=== PATIENT | male | born 1965 | race African-American/Black ===

== ENCOUNTER 2020-07-07 14:09 | Inpatient (IN) | payer OTHER ==
[~2020-07-07] VITALS: Ht 190.5 cm; Wt 86.2 kg
[2020-07-07] MEDS: D5W/SOD CHL 0.45% 1,000 ML IV SCH (19:00)
[2020-07-07] MEDS ORDERED: cloNIDine HCL 0.1 MG TAB PO SCH (19:00)
[2020-07-07] MEDS ORDERED: MORPHINE SULF INJ 2 MG/ML SYRINGE 1ML IV PRN (19:00)
[2020-07-07] MEDS ORDERED: NITROGLYCERIN 0.4 MG SL TAB SL PRN (19:00)
[2020-07-07 19:25] VITALS: BP 163/102
[2020-07-07] MEDS ORDERED: cloNIDine HCL 0.1 MG TAB PO PRN (19:30)
[2020-07-07] MEDS ORDERED: cloNIDine HCL 0.1 MG TAB PO ONE (19:45)
[2020-07-07 20:00] VITALS: BP 167/111
[2020-07-07 21:27] LABS: Basophils # (auto) 0 10 ^3/uL (0-0.2); Basophils % (auto) 0.6 % (0.0-2.0); Eosinophils # (auto) 0.3 10 ^3/uL (0-0.8); Eosinophils % (auto) 6.1 % (0.0-7.0); Hematocrit 46.7 % (41.0-53.0); Hemoglobin 16.3 g/dL (13.5-17.5); Lymphocytes % (auto) 17.9 % (10.0-50.0); Mean Corpuscular Hemoglobin 30.5 pg (28.0-32.0); Mean Corpuscular Hgb Conc. 34.9 g/dL (32.0-36.0); Mean Corpuscular Volume 87.4 fL (80.0-100.0); Monocytes # (auto) 0.6 10 ^3/uL (0-1.3); Monocytes % (auto) 11.6 % (0.0-12.0); Neutrophils # (auto) 3.6 10 ^3/uL (1.6-8.6); Neutrophils % (auto) 63.8 % (37.0-80.0); Nucleated Red Blood Cells % 0.2 %; Platelet Count (auto) 195 10^3/uL (140-450); Red Blood Cells 5.35 10^6/uL (4.5-5.90); Red Cell Distribution Width 13.6 % (11.8-14.3); White Blood Cell 5.6 10^3/uL (4.4-10.8)
[2020-07-07 21:46] LABS: Calcium 8.8 mg/dL (8.5-10.1)
[2020-07-07 21:51] LABS: BUN/Creatinine Ratio 11.1
[2020-07-08] MEDS: D5W/SOD CHL 0.45% 1,000 ML IV SCH ×3 (01:46→13:20)
[2020-07-08 02:35] VITALS: BP 167/111
[2020-07-08 05:26] VITALS: BP 113/64
[2020-07-08] MEDS: ASPirin 81 mg TAB PO SCH (08:56)
[2020-07-08] MEDS: amLODIPine BESYLATE 5 MG TAB PO SCH (08:57)
[2020-07-08] MEDS: METOPROLOL TARTRATE 25 MG TAB PO SCH (08:57)
[2020-07-08 09:00] VITALS: BP 147/93
[2020-07-08 09:11] LABS: Urine WBC None Seen /hpf (0 - 3)
[2020-07-08 09:19] LABS: Urine Bacteria NONE SEEN /hpf (None Seen); Urine Blood Negative /uL (Negative); Urine Specific Gravity 1.007 (1.001-1.035)
[2020-07-08] MEDS ORDERED: LOSARTAN POTASSIUM 50 MG TAB PO SCH (10:00)
[2020-07-08 13:00] VITALS: BP_DIAS 121
[2020-07-08] MEDS: HYDROcodone-ACET 10/325MG TAB PO PRN ×2 (13:21→20:48)
[2020-07-08 17:00] VITALS: BP 125/89
[2020-07-08] MEDS: ACETAMINOPHEN 325 MG TAB PO PRN (18:12)
[2020-07-08 22:00] VITALS: BP 161/88
[2020-07-09 05:00] VITALS: BP 143/98
[2020-07-09] MEDS: D5W/SOD CHL 0.45% 1,000 ML IV SCH ×4 (05:23→17:40)
[2020-07-09 08:00] VITALS: BP 123/84
[2020-07-09 09:00] VITALS: BP 138/92
[2020-07-09] MEDS: METOPROLOL TARTRATE 25 MG TAB PO SCH (10:05)
[2020-07-09] MEDS: ASPirin 81 mg TAB PO SCH (10:06)
[2020-07-09] MEDS: LOSARTAN POTASSIUM 50 MG TAB PO SCH (10:06)
[2020-07-09] MEDS: amLODIPine BESYLATE 5 MG TAB PO SCH (10:06)
[2020-07-09 12:57] VITALS: BP 147/95
[2020-07-09 16:44] VITALS: BP 145/98
[2020-07-09] MEDS: HYDROcodone-ACET 10/325MG TAB PO PRN (19:42)
[2020-07-09 22:00] VITALS: BP 112/94
[2020-07-10] MEDS: D5W/SOD CHL 0.45% 1,000 ML IV SCH ×4 (01:41→20:41)
[2020-07-10 05:00] VITALS: BP 142/85
[2020-07-10 08:05] VITALS: BP 141/89
[2020-07-10 09:00] VITALS: BP 141/89
[2020-07-10] MEDS: amLODIPine BESYLATE 5 MG TAB PO SCH (09:23)
[2020-07-10] MEDS: ASPirin 81 mg TAB PO SCH (09:24)
[2020-07-10] MEDS: LOSARTAN POTASSIUM 50 MG TAB PO SCH (09:24)
[2020-07-10] MEDS: METOPROLOL TARTRATE 25 MG TAB PO SCH (09:24)
[2020-07-10] MEDS: HYDROcodone-ACET 10/325MG TAB PO PRN ×2 (09:25→18:28)
[2020-07-10 13:00] VITALS: BP 120/77
[2020-07-10 16:49] VITALS: BP 143/87
[2020-07-10 20:00] VITALS: BP 13/87
[2020-07-10] MEDS: ACETAMINOPHEN 325 MG TAB PO PRN (20:55)
[2020-07-11] VITALS (7 sets, daily range): BP systolic 121–161; BP diastolic 88–99
[2020-07-11] MEDS: D5W/SOD CHL 0.45% 1,000 ML IV SCH ×4 (02:45→23:29)
[2020-07-11] MEDS: METOPROLOL TARTRATE 25 MG TAB PO SCH ×2 (09:00→19:17)
[2020-07-11] MEDS: LOSARTAN POTASSIUM 50 MG TAB PO SCH (09:00)
[2020-07-11] MEDS: ASPirin 81 mg TAB PO SCH (09:01)
[2020-07-11] MEDS: CLOPIDOGREL BISULFATE 75 MG TAB PO SCH (09:01)
[2020-07-11] MEDS: amLODIPine BESYLATE 5 MG TAB PO SCH (09:02)
[2020-07-11] MEDS: ACETAMINOPHEN 325 MG TAB PO PRN (09:15)
[2020-07-12] MEDS: ACETAMINOPHEN 325 MG TAB PO PRN ×2 (02:10→20:45)
[2020-07-12 05:00] VITALS: BP 144/89
[2020-07-12] MEDS: D5W/SOD CHL 0.45% 1,000 ML IV SCH ×2 (05:40→12:24)
[2020-07-12] MEDS: HYDROcodone-ACET 10/325MG TAB PO PRN ×2 (07:17→20:37)
[2020-07-12 09:00] VITALS: BP 143/92
[2020-07-12] MEDS: METOPROLOL TARTRATE 25 MG TAB PO SCH (09:33)
[2020-07-12] MEDS: ASPirin 81 mg TAB PO SCH (09:33)
[2020-07-12] MEDS: LOSARTAN POTASSIUM 50 MG TAB PO SCH (09:33)
[2020-07-12] MEDS: CLOPIDOGREL BISULFATE 75 MG TAB PO SCH (09:33)
[2020-07-12] MEDS: amLODIPine BESYLATE 5 MG TAB PO SCH (09:34)
[2020-07-12 13:00] VITALS: BP 125/69
[2020-07-12] MEDS ORDERED: MEPERIDINE HCL (25 MG/ML) 1ML VIAL IM ONE (13:30)
[2020-07-12 17:00] VITALS: BP 128/84
[2020-07-12 20:00] VITALS: BP 134/83
[2020-07-12 22:00] VITALS: BP 134/83
[2020-07-13 04:54] VITALS: BP 122/73
[2020-07-13 08:00] VITALS: BP 142/92
[2020-07-13 09:00] VITALS: BP 142/92
[2020-07-13] MEDS: ASPirin 81 mg TAB PO SCH (09:43)
[2020-07-13] MEDS: LOSARTAN POTASSIUM 50 MG TAB PO SCH (09:44)
[2020-07-13] MEDS: amLODIPine BESYLATE 5 MG TAB PO SCH (09:45)
[2020-07-13] MEDS: METOPROLOL TARTRATE 25 MG TAB PO SCH (09:45)
[2020-07-13] MEDS: CLOPIDOGREL BISULFATE 75 MG TAB PO SCH (09:45)
[2020-07-13] MEDS: ACETAMINOPHEN 325 MG TAB PO PRN ×2 (09:46→16:36)
[2020-07-13 13:12] VITALS: BP 123/78
[2020-07-13 16:35] VITALS: BP 135/80
[2020-07-13] MEDS: LACTULOSE 20Gm/30ML SOLN PO SCH ×2 (18:20→21:49)
[2020-07-13] MEDS: DOCUSATE SOD 100 MG CAP PO SCH (21:49)
[2020-07-13 23:59] VITALS: BP 106/62
[2020-07-14] VITALS (7 sets, daily range): BP systolic 83–124; BP diastolic 63–79
[2020-07-14] MEDS: LACTULOSE 20Gm/30ML SOLN PO SCH ×6 (02:00→21:50)
[2020-07-14] MEDS: ASPirin 81 mg TAB PO SCH (10:28)
[2020-07-14] MEDS: LOSARTAN POTASSIUM 50 MG TAB PO SCH (10:30)
[2020-07-14] MEDS: METOPROLOL TARTRATE 25 MG TAB PO SCH (10:31)
[2020-07-14] MEDS: DOCUSATE SOD 100 MG CAP PO SCH ×2 (10:31→21:49)
[2020-07-14] MEDS: amLODIPine BESYLATE 5 MG TAB PO SCH (10:33)
[2020-07-14] MEDS: CLOPIDOGREL BISULFATE 75 MG TAB PO SCH (10:38)
[2020-07-14] MEDS: ACETAMINOPHEN 325 MG TAB PO PRN (10:39)
[2020-07-14] MEDS ORDERED: SODIUM CHLORIDE 0.9% 1,000 ML IV ONE (13:45)
[2020-07-15] MEDS: LACTULOSE 20Gm/30ML SOLN PO SCH ×6 (02:00→21:13)
[2020-07-15 05:22] VITALS: BP 107/59
[2020-07-15 08:00] VITALS: BP 107/63
[2020-07-15] MEDS: amLODIPine BESYLATE 5 MG TAB PO SCH (09:40)
[2020-07-15] MEDS: ASPirin 81 mg TAB PO SCH (09:40)
[2020-07-15] MEDS: METOPROLOL TARTRATE 25 MG TAB PO SCH (09:40)
[2020-07-15] MEDS: CLOPIDOGREL BISULFATE 75 MG TAB PO SCH (09:40)
[2020-07-15] MEDS: ACETAMINOPHEN 325 MG TAB PO PRN ×2 (09:41→20:51)
[2020-07-15] MEDS: DOCUSATE SOD 100 MG CAP PO SCH ×2 (09:41→21:13)
[2020-07-15] MEDS: LOSARTAN POTASSIUM 50 MG TAB PO SCH (09:42)
[2020-07-15 13:00] VITALS: BP 107/70
[2020-07-15 17:00] VITALS: BP 125/78
[2020-07-15] MEDS: HYDROcodone-ACET 10/325MG TAB PO PRN (20:44)
[2020-07-15 22:00] VITALS: BP 115/69
[2020-07-16] MEDS: LACTULOSE 20Gm/30ML SOLN PO SCH ×6 (01:33→22:00)
[2020-07-16 04:46] LABS: Urine Amorphous Crystal FEW /hpf (None Seen); Urine Bacteria MANY /hpf (None Seen); Urine Blood Negative /uL (Negative); Urine Mucus MODERATE (None Seen); Urine Specific Gravity 1.026 (1.001-1.035); Urine WBC 39 /hpf (0 - 3)
[2020-07-16 05:00] VITALS: BP_SYST 131; BP_SYST 137; BP_DIAS 71; BP_DIAS 82
[2020-07-16 05:51] LABS: Basophils # (auto) 0 10 ^3/uL (0-0.2); Eosinophils # (auto) 0.2 10 ^3/uL (0-0.8); Hemoglobin 14.2 g/dL (13.5-17.5); Lymphocytes # (auto) 0.9 10 ^3/uL (0.4-5.4); Neutrophils # (auto) 2.7 10 ^3/uL (1.6-8.6); White Blood Cell 4.3 10^3/uL (4.4-10.8)
[2020-07-16 05:54] LABS: Basophils % (auto) 0.6 % (0.0-2.0); Eosinophils % (auto) 3.9 % (0.0-7.0); Hematocrit 37.5 % (41.0-53.0); Mean Corpuscular Hemoglobin 34.9 pg (28.0-32.0); Mean Corpuscular Hgb Conc. 37.8 g/dL (32.0-36.0); Mean Corpuscular Volume 92.4 fL (80.0-100.0); Monocytes # (auto) 0.5 10 ^3/uL (0-1.3); Monocytes % (auto) 12.6 % (0.0-12.0); Neutrophils % (auto) 61.9 % (37.0-80.0); Platelet Count (auto) 251 10^3/uL (140-450); Red Blood Cells 4.06 10^6/uL (4.5-5.90); Red Cell Distribution Width 13.3 % (11.8-14.3)
[2020-07-16 06:13] LABS: Potassium 3.7 mmol/L (3.5-5.1)
[2020-07-16 06:18] LABS: BUN/Creatinine Ratio 15.9; Calcium 8.4 mg/dL (8.5-10.1)
[2020-07-16 06:26] LABS: INR 1.19 (0.9-1.15); Partial Thromboplastin Time 28.6 sec (23.0-31.2)
[2020-07-16] MEDS ORDERED: IODIXANOL 320MG/ML 100ML BTL IV ONE (07:38)
[2020-07-16] MEDS ORDERED: LIDOCAINE 2%HCL (LOCAL ANESTH.) INJ 20ML MDV ONE (07:38)
[2020-07-16] MEDS ORDERED: ANGIOMAX 250 MG VIAL IV ONE (08:43)
[2020-07-16] MEDS ORDERED: fentaNYL CITRATE 100 MCG/2 ML VL ONE (08:43)
[2020-07-16] MEDS ORDERED: diphenhdrAMINE HCL 50 MG/1 ML VL ONE (08:43)
[2020-07-16] MEDS ORDERED: MIDAZOLAM HCL 1MG/1ML-2 ML VIAL ONE (08:43)
[2020-07-16] MEDS ORDERED: SODIUM CHL 0.9% 0 ML ONE (08:44)
[2020-07-16] MEDS ORDERED: SODIUM CHLORIDE 0.9% 1,000 ML IV ONE (10:00)
[2020-07-16 10:49] VITALS: BP 133/85
[2020-07-16] MEDS: ENOXAPARIN SOD 40 MG/0.4 ML SYRINGE SC SCH (11:12)
[2020-07-16] MEDS: ACETAMINOPHEN 325 MG TAB PO PRN ×2 (11:13→19:42)
[2020-07-16] MEDS: ASPirin 81 mg TAB PO SCH (11:13)
[2020-07-16] MEDS: LOSARTAN POTASSIUM 50 MG TAB PO SCH (11:13)
[2020-07-16] MEDS: METOPROLOL TARTRATE 25 MG TAB PO SCH (11:14)
[2020-07-16] MEDS: amLODIPine BESYLATE 5 MG TAB PO SCH (11:14)
[2020-07-16] MEDS: CLOPIDOGREL BISULFATE 75 MG TAB PO SCH (11:15)
[2020-07-16] MEDS: DOCUSATE SOD 100 MG CAP PO SCH ×2 (11:15→22:00)
[2020-07-16 12:51] VITALS: BP 133/85
[2020-07-16 16:45] VITALS: BP 129/77
[2020-07-16 22:00] VITALS: BP 143/89
[2020-07-17] MEDS: LACTULOSE 20Gm/30ML SOLN PO SCH ×6 (01:53→21:38)
[2020-07-17] MEDS: ACETAMINOPHEN 325 MG TAB PO PRN (03:37)
[2020-07-17 05:00] VITALS: BP 138/94
[2020-07-17 08:50] VITALS: BP 134/94
[2020-07-17] MEDS: DOCUSATE SOD 100 MG CAP PO SCH ×2 (10:41→21:39)
[2020-07-17] MEDS: LOSARTAN POTASSIUM 50 MG TAB PO SCH (10:41)
[2020-07-17] MEDS: ASPirin 81 mg TAB PO SCH (10:41)
[2020-07-17] MEDS: METOPROLOL TARTRATE 25 MG TAB PO SCH (10:43)
[2020-07-17] MEDS: amLODIPine BESYLATE 5 MG TAB PO SCH (10:44)
[2020-07-17] MEDS: CLOPIDOGREL BISULFATE 75 MG TAB PO SCH (10:44)
[2020-07-17] MEDS: ENOXAPARIN SOD 40 MG/0.4 ML SYRINGE SC SCH (10:45)
[2020-07-17 12:50] VITALS: BP 150/85
[2020-07-17 14:28] VITALS: BP 150/85
[2020-07-17 16:46] VITALS: BP 139/85
[2020-07-17 22:00] VITALS: BP 131/78
== END 2020-07-17 23:30 | DRG 64 ==
LOC: EEVIPCON 19:14 → TELE 19:14 → TELE-EAST 19:20 → TELE-CENTR 07-08 21:05 → TELE-WESTW 07-10 07:47
PROVIDERS: ADMIT Internal Medicine; ATTEND Internal Medicine
PROC: 4A023N8 Measurement of Cardiac Sampling and Pressure, Bilateral, Percutaneous Approach (ICD-10-PCS; principal; 2020-07-16)
PROC: B2111ZZ Fluoroscopy of Multiple Coronary Arteries using Low Osmolar Contrast (ICD-10-PCS; 2020-07-16)
PROC: B41F1ZZ Fluoroscopy of Right Lower Extremity Arteries using Low Osmolar Contrast (ICD-10-PCS; 2020-07-16)
PROC: B2151ZZ Fluoroscopy of Left Heart using Low Osmolar Contrast (ICD-10-PCS; 2020-07-16)
DX: I63.512 Cerebral infarction due to unspecified occlusion or stenosis of left middle cerebral artery (principal); I21.4 Non-ST elevation (NSTEMI) myocardial infarction; G81.91 Hemiplegia, unspecified affecting right dominant side; I47.2 Ventricular tachycardia; R47.01 Aphasia; I48.0 Paroxysmal atrial fibrillation; Z20.828 Contact with and (suspected) exposure to other viral communicable diseases; I10 Essential (primary) hypertension; Z82.49 Family history of ischemic heart disease and other diseases of the circulatory system; Z83.3 Family history of diabetes mellitus; K59.00 Constipation, unspecified
CPT/HCPCS: 36415; 70551; 71045; 75710; 80048; 81001; 84484; 85025; 85610; 85730; 86850; 86900; 86901; 87040; 87081; 87086; 92610; 93460; 97110; 97116; 97163; 97530; 99152; 99153; C1751; G0378; J2250; J7042; Q9967